=== PATIENT | female | born 1965 | race Caucasian/White ===

== ENCOUNTER 2016-11-15 12:28 | Emergency (ER) | payer MEDICARE, MEDICAID ==
--- NOTE | 2016-11-15 13:53 | ED ---
Skin Complaint - HPI Summary HPI Summary: 51 female presents with complains of needing a head lice check. Patient states she was having itching of her scalp and noticed lice, she has had it in the past. She was treated on Sunday and symptoms have resolved. Denies any symptoms or itching. States she is going to treat herself one more time on Sunday, 7 days from initial treatment. Denies any other complaints. No PMHx. Needs a note saying she is clear for her custodial. - History of Current Complaint Chief Complaint: EDGeneral Time Seen by Provider: 11/15/16 12:57 Stated Complaint: CHECK FOR LICE Hx Obtained From: Patient Onset/Duration: Started Days Ago, Resolved Skin Exposure Onset/Duration: Days Ago Timing: Lasting Days Onset Severity: Mild Current Severity: None Pain Intensity: 0 Pain Scale Used: 0-10 Numeric Skin Location: Discrete - scalp, head Character: Pruritus Aggravating Symptom(s): Nothing Alleviating Symptom(s): Treatment POOL CLEANER: - lice treatment, "dr lice" Associated Signs & Symptoms: Negative Related History: Insect Bite/Sting - lice - Allergy/Home Medications Allergies/Adverse Reactions: Allergies Allergy/AdvReac Type Severity Reaction Status Date / Time Penicillins [PCN] Allergy Unknown Hives Verified 11/15/16 12:55 Ibuprofen Allergy Edema Verified 11/15/16 12:55 PMH/Surg Hx/FS Hx/Imm Hx Endocrine/Hematology History: Reports: Hx Diabetes - BOARDERLINE Denies: Hx Systemic Lupus Erythematosus, Hx Thyroid Disease Cardiovascular History: Reports: Hx Angina - PRESSURE, Hx Hypotension Denies: Hx Congestive Heart Failure, Hx Hypertension, Hx Pacemaker/ICD Respiratory History: Reports: Hx Asthma, Hx Sleep Apnea - evaluation for 05/2013 , Other Respiratory Problems/Disorders - current smoker Denies: Hx Chronic Obstructive Pulmonary Disease (COPD) GI History: Denies: Hx Ulcer History: Reports: Hx Kidney Stones Denies: Hx Dialysis, Hx Renal Disease Musculoskeletal History: Reports: Hx Back Problems - chronic pain, Hx Orthopedic Injury - rib injury, Other Musculoskeletal History - leg edema, candidiasis Denies: Hx Rheumatoid Arthritis Sensory History: Denies: Hx Hearing Aid Psychiatric History: Reports: Hx Community Mental Health Tx - Ashley Benson, provider, Hx Schizophrenia Denies: Hx Panic Disorder - Cancer History Cancer Type, Location and Year: CERVIX, 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 TEENS Hx Chemotherapy: No - Surgical History Surgery Procedure, Year, and Place: CHOLECYSTECTOMY EARLY 2012 @ [facility] [place] & A REMOVEDPALATEDENTALTUBAL LIGATION - Immunization History Immunizations Up to Date: Yes Infectious Disease History: No Infectious Disease History: Denies: Hx Hepatitis, Hx Human Immunodeficiency Virus (HIV), Traveled Outside the [place] in Last 30 Days - Family History Known Family History: Positive: Unknown - Social History Alcohol Use: None Substance Use Type: Reports: Prescribed Smoking Status (MU): Light Every Day Tobacco Smoker Type: Cigarettes Have You Smoked in the Last Year: Yes Review of Systems Constitutional: Negative Cardiovascular: Negative Respiratory: Negative Positive: Other - head lice exposure, treated All Other Systems Reviewed And Are Negative: Yes Physical Exam Triage Information Reviewed: Yes Vital Signs On Initial Exam: Initial Vitals Temp Pulse Resp BP Pulse Ox 96.8 F 88 18 129/76 98 11/15/16 12:34 11/15/16 12:34 11/15/16 12:34 11/15/16 12:34 11/15/16 12:34 Vital Signs Reviewed: Yes Appearance: Positive: Well-Appearing, No Pain Distress, Well-Nourished Skin: Positive: Warm, Skin Color Reflects Adequate Perfusion, Dry. Negative: Cold, Soft, Cyanosis @, Pale, Erythema @ Head/Face: Positive: Normal Head/Face Inspection, Scalp - some remnants and capsules noted however no live pediculosis noted, easily removable. Eyes: Positive: Conjunctiva Clear ENT: Positive: Hearing grossly normal Neck: Positive: Supple Respiratory/Lung Sounds: Positive: Clear to Auscultation, Breath Sounds Present. Negative: Rales, Rhonchi, Wheezes Cardiovascular: Positive: Normal, RRR, Pulses are Symmetrical in both Upper and Lower Extremities. Negative: Murmur, Rub Musculoskeletal: Positive: Strength/ROM Intact Neurological: Positive: Sensory/Motor Intact, Alert, Oriented to Person Place, Time Psychiatric: Positive: Affect/Mood Appropriate Diagnostics - Vital Signs Vital Signs Temp Pulse Resp BP Pulse Ox 11/15/16 12:54 96.8 F 88 18 129/76 98 11/15/16 12:34 96.8 F 88 18 129/76 98 - Laboratory Lab Statement: Any lab studies that have been ordered have been reviewed, and results considered in the medical decision making process. Course/Dx - Course Course Of Treatment: evaluated patient for lice using lamp and comb, nurse Felicia STEVENS also evaluted patient. No sign of live lice noted, however remnanat and capsules that were easily removed were noted. [place] with permethrin on Sunday, 7 days from initial to ensure complete treatment. Continue proper washing, wet combing and try flat ironing hair. Clear to return to custodial as no live lice identified. Follow up, especially if symptoms return. - Differential Diagnoses - Skin Complaint Differential Diagnoses: Tinea, Urticaria, Other - pediculosis capitas - Diagnoses Provider Diagnoses: Pediculosis capitis Discharge - Discharge Plan Condition: Stable Disposition: HOME Prescriptions: Permethrin 1% LOTION* [Nix 1% LOTION*] 1 applic TOPICAL SEE INSTRUCTIONS #1 btl Patient Education Materials: Permethrin (On the skin), Pediculosis (ED) Forms: *Gen. Provider Communication Referrals: Bradley Peace MD [Primary Care Provider] - Additional Instructions: Use prescribed medication on Sunday as directed below. Prior to application, wash hair with conditioner-free shampoo; rinse with water and towel dry. Apply a sufficient amount of lotion or cream rinse to saturate the hair and scalp (especially behind the ears and nape of neck). Leave on hair for no longer than 10 minutes, then rinse off with warm water; remove remaining nits with nit comb. A single application is generally sufficient; however may repeat 7 days after first treatment if lice or nits are still present. Follow up with PCP. Recommend wet combing after treatment and flat ironing hair to kill any remaining remnants.
[2016-11-15 14:32] VITALS: BP 130/72
== END 2016-11-15 14:33 | disposition home or self-care (01) ==
LOC: ED 12:28
DX: B85.0 Pediculosis due to Pediculus humanus capitis (principal); F17.210 Nicotine dependence, cigarettes, uncomplicated
CPT/HCPCS: 99282

== ENCOUNTER → 2019-03-07 | Day surgery (SDC) | payer MEDICARE, MEDICAID ==
[~2019-03-07] MED LIST: Buffered Lidocaine 1% SYRIN* 1 ML/SYRINGE INTRADERM ONE; Lactated Ringers 1000 ML Bag* 1,000 ML IV SCH; Midazolam* 1 MG/ML 5 ML VIAL (5 MG) ONE; Ofloxacin 0.3% (Ear Drop)* 5 ml BTL ONE; fentaNYL* 50 MCG/ML 2 ML VIAL (100 MCG VIAL) ONE
[2019-03-07 14:04] VITALS: BP 93/62
--- NOTE | 2019-03-07 20:32 | OP ---
DATE OF OPERATION: 03/07/19 - [facility] DATE OF : 63 SURGEON: Chip Conn MD CURB BUILDER: None. ANESTHESIA: General. PRE-OP DIAGNOSIS: Chronic serous otitis media on the right. POST-OP DIAGNOSIS: Chronic serous otitis media on the right. OPERATIVE PROCEDURE: Right myringotomy tube placement. ESTIMATED BLOOD LOSS: Negligible. FINDINGS: Serous effusion on the right. INDICATION: This is a 53-year-old woman who has had problems intermittently with middle ear disease. She has had a right-sided effusion for several months now. She could not tolerate placement of a tympanostomy tube in the office and also has a fairly severe head tremor. Because of these factors, the decision was made to place the tympanostomy tube under anesthesia. DESCRIPTION OF PROCEDURE: On 03/07/19, the patient was brought to the operating room. Anesthesia was induced using IV sedatives by the anesthesiologist. The patient was draped and a time-out was performed. The right ear was examined under microscope. Cerumen was cleaned out of the ear canal. An inferior radial myringotomy was made. Serous fluid was suctioned out in the middle ear space and an Berkowitz beveled grommet tube was placed followed by Floxin drops and a cotton ball. The patient was then delivered to the PACU in stable condition. [id number]/[facility] #: [id number] [facility]
== END | disposition home or self-care (01) ==
LOC: OR 09:36
PROVIDERS: ATTEND Otolaryngology
DX: H65.21 Chronic serous otitis media, right ear (principal); G25.2 Other specified forms of tremor; F17.210 Nicotine dependence, cigarettes, uncomplicated; E03.9 Hypothyroidism, unspecified; E11.9 Type 2 diabetes mellitus without complications; Z79.84 Long term (current) use of oral hypoglycemic drugs
CPT/HCPCS: A9270-GY; J2250; J3010

== ENCOUNTER 2021-07-19 11:21 | Inpatient (IN) ==
[~2021-07-19 11:21] MED LIST changes: +Buffered Lidocaine 1% SYRIN 1 ml INTRADERM ONE; -Buffered Lidocaine 1% SYRIN* 1 ML/SYRINGE INTRADERM ONE; -Lactated Ringers 1000 ML Bag* 1,000 ML IV SCH; +Lactated Ringers 1000 ml BAG 1,000 ML IV SCH; -Midazolam* 1 MG/ML 5 ML VIAL (5 MG) ONE; -Ofloxacin 0.3% (Ear Drop)* 5 ml BTL ONE; -fentaNYL* 50 MCG/ML 2 ML VIAL (100 MCG VIAL) ONE
[2021-07-19] MEDS ORDERED: Clindamycin 900 MG/D5W BAG 900 MG/50 ML BAG IVPB ONE (12:32)
[2021-07-19] MEDS ORDERED: Midazolam 2 mg/2 ml VIAL 1 mg/ml 2 ml VIAL (2 mg) ONE (14:52)
[2021-07-19] MEDS ORDERED: Propofol 10 MG/ML 20 ML BTL ONE ×3 (14:52→18:19)
[2021-07-19] MEDS ORDERED: fentaNYL 100 mcg/2 ml 50 MCG/ML VIAL ONE (14:52)
[2021-07-19] MEDS ORDERED: Lidocaine 2% PF 5 ML VIAL ONE (14:52)
[2021-07-19] MEDS ORDERED: Phenylephrine IV 10 MG/ML 1 ml VIAL ONE (14:56)
[2021-07-19] MEDS ORDERED: fentaNYL 100 mcg/2 ml 50 MCG/ML VIAL IV PRN (15:37)
[2021-07-19] MEDS ORDERED: Ondansetron 4 mg VIAL 2 MG/ML 2 ml VIAL IV PRN ×2 (15:37→16:25)
[2021-07-19] MEDS ORDERED: Acetaminophen IV 1 GM/100ML 100 ML IV PRN (15:37)
[2021-07-19] MEDS ORDERED: DiMENhydriNATE IV 50 mg/ml 1 ml VIAL IV PUSH PRN (15:37)
[2021-07-19] MEDS ORDERED: HYDROmorphone 1 MG/1 ML SYRINGE IV PRN (15:37)
[2021-07-19] MEDS ORDERED: Naloxone 0.4 mg VIAL 0.4 mg/ml 1 ml VIAL IV PRN (15:37)
[2021-07-19] MEDS ORDERED: Morphine 2 MG/ML SYRINGE IV PRN (16:25)
[2021-07-19] MEDS ORDERED: diPHENhydraMINE 25 mg TAB PO PRN (16:25)
[2021-07-19] MEDS ORDERED: Ondansetron ODT 4 mg TAB 4 MG TAB PO PRN (16:25)
[2021-07-19] MEDS ORDERED: diPHENhydraMINE IV 50 MG/ML 1 ml VIAL (BENADRYL) IV PRN (16:25)
[2021-07-19] MEDS ORDERED: Lactulose 30 ml UDC PO PRN (16:25)
[2021-07-19] MEDS ORDERED: Magnesium Hydroxide LIQ 30 ML UDC PO PRN (16:25)
[2021-07-19] MEDS ORDERED: Lactated Ringers 1000 ml BAG 1,000 ML IV SCH (17:00)
[2021-07-19] MEDS ORDERED: Dexamethasone IV 4 MG/ML VIAL 1 ml VIAL ONE (17:01)
[2021-07-19] MEDS ORDERED: Ondansetron 4 mg VIAL 2 MG/ML 2 ml VIAL ONE (17:01)
[2021-07-19] MEDS ORDERED: Glycopyrrolate IV 0.2 MG/ML 1 ML VIAL ONE ×2 (17:01→17:02)
[2021-07-19] MEDS ORDERED: Dextrose 50% Syringe 50 ml 25 GM/50 ML SYRINGE IV PUSH PRN (20:01)
[2021-07-19] MEDS ORDERED: Albuterol HFA INHALER 8 gm MDI INH PRN (20:03)
[2021-07-19] MEDS: Magnesium Hydroxide LIQ 30 ML UDC PO SCH (21:29)
[2021-07-20] MEDS: Clindamycin 600 MG/D5W BAG 600 MG/50 ML BAG IV SCH ×3 (00:28→15:41)
[2021-07-20 07:00] LABS: Hematocrit 39 % (35-47); Hemoglobin 12.9 g/dL (12.0-16.0); Mean Platelet Volume 8.5 fL (7.4-10.4); Platelet Count 202 10^3/uL (150-450)
[2021-07-20 07:19] LABS: Calcium 8.3 mg/dL (8.6-10.3); Potassium 3.9 mmol/L (3.5-5.0); eGFR CKD-EPI 94.3 (>60)
[2021-07-20] MEDS ORDERED: Lactated Ringers 500 ml BAG 500 ML IV SCH (09:00)
[2021-07-20] MEDS: Vitamin THERAPEUTIC TAB PO SCH (09:18)
[2021-07-20] MEDS: Magnesium Hydroxide LIQ 30 ML UDC PO SCH ×2 (09:18→20:30)
[2021-07-20] MEDS ORDERED: NS 0.9% 500 ml BAG 500 ML IV ONE (13:24)
[2021-07-20] MEDS ORDERED: NS 0.9% 1000 ml BAG 1,000 ML IV SCH (13:30)
[2021-07-21 06:25] LABS: Hematocrit 34 % (35-47); Hemoglobin 11.4 g/dL (12.0-16.0); Mean Platelet Volume 8.8 fL (7.4-10.4); Platelet Count 172 10^3/uL (150-450)
[2021-07-21] MEDS: Magnesium Hydroxide LIQ 30 ML UDC PO SCH ×2 (08:48→21:23)
[2021-07-21] MEDS: Vitamin THERAPEUTIC TAB PO SCH (08:50)
[2021-07-21] MEDS ORDERED: Lactated Ringers 1000 ml BAG 1,000 ML IV ONE ×2 (10:17)
[2021-07-21] MEDS: Lactated Ringers 1000 ml BAG 1,000 ML IV SCH (15:27)
[2021-07-22] MEDS: Lactated Ringers 1000 ml BAG 1,000 ML IV SCH (01:55)
[2021-07-22 05:55] LABS: Hematocrit 33 % (35-47); Hemoglobin 11.3 g/dL (12.0-16.0); Platelet Count 164 10^3/uL (150-450)
[2021-07-22] MEDS: Magnesium Hydroxide LIQ 30 ML UDC PO SCH (08:42)
[2021-07-22] MEDS: Vitamin THERAPEUTIC TAB PO SCH (08:43)
[2021-07-22] MEDS ORDERED: Cosyntropin 0.25 MG VIAL IV ONE (12:00)
[2021-07-22 12:25] VITALS: BP 102/68
[2021-07-22 13:08] LABS: TSH Ultra Thyroid Stim Horm 15.06 mcIU/mL (0.34-5.60)
[2021-07-25 14:04] LABS: ACTH <5.0 pg/mL
[2021-07-26 16:02] LABS: Renin 1.5 ng/mL/h
== END 2021-07-22 16:42 | disposition home or self-care (01) | DRG 470 ==
LOC: AA 11:21 → SSU 20:05
PROVIDERS: ADMIT Orthopaedic Surgery Adult Reconstructive Orthopaedic Surgery; ATTEND Orthopaedic Surgery Adult Reconstructive Orthopaedic Surgery

== ENCOUNTER 2023-10-19 08:20 | Observation (INO) ==
[~2023-10-19 08:20] MED LIST changes: -Buffered Lidocaine 1% SYRIN 1 ml INTRADERM ONE; +Dexamethasone IV 4 MG/ML VIAL 1 ml VIAL ONE; -Lactated Ringers 1000 ml BAG 1,000 ML IV SCH; +Lidocaine 2% PF 5 ML VIAL ONE; +Metoclopramide 5 MG/ML VIAL (10 mg) IV PRN; +Midazolam 2 mg/2 ml VIAL 1 mg/ml 2 ml VIAL (2 mg) ONE; +NS 0.45% 1000 ml BAG 1,000 ML IV SCH; +Naloxone 0.4 mg VIAL 0.4 mg/ml 1 ml VIAL IV PRN; +Ondansetron 4 mg VIAL 2 MG/ML 2 ml VIAL IV PRN; +Ondansetron 4 mg VIAL 2 MG/ML 2 ml VIAL ONE; +Phenylephrine IV 10 MG/ML 1 ml VIAL ONE; +Propofol 10 MG/ML 20 ML BTL ONE; +ROPIVACAINE 5 MG/ML 30 ML BTL (0.5%) ONE; +Tranexamic Acid 1 GM/100ML BAG 2,000 MG/200 ML BAG IV ONE; +ceFAZolin 2 GM in NS PREMIX 2 GM/100 ML BAG IVPB ONE; +fentaNYL 100 mcg/2 ml 50 MCG/ML VIAL ONE
[2023-10-19 08:31] LABS: Rapid COVID-19 Molecular Undetected (Undetected)
[2023-10-19] MEDS ORDERED: Rocuronium 50 mg VIAL 10 mg/ml 5 ml VIAL (50 mg) ONE ×2 (09:10→10:54)
[2023-10-19] MEDS ORDERED: HYDROmorphone 0.5 MG/0.5 ML SYRINGE ONE (09:10)
[2023-10-19] MEDS ORDERED: fentaNYL 100 mcg/2 ml 50 MCG/ML VIAL ONE ×3 (09:10→13:57)
[2023-10-19] MEDS ORDERED: Sterile Water for Inj 10 ML ONE (10:27)
[2023-10-19] MEDS ORDERED: Propofol 10 MG/ML 20 ML BTL ONE (11:42)
[2023-10-19] MEDS ORDERED: Ondansetron ODT 4 mg TAB 4 MG TAB PO PRN (13:11)
[2023-10-19] MEDS ORDERED: Morphine 2 MG/ML SYRINGE IV PRN (13:11)
[2023-10-19] MEDS ORDERED: Magnesium Hydroxide LIQ 30 ML UDC PO PRN (13:11)
[2023-10-19] MEDS ORDERED: Calcium Carb (TUMS) 500 mg CHEW TAB PO PRN (13:11)
[2023-10-19] MEDS ORDERED: Lactulose 30 ml UDC PO PRN (13:11)
[2023-10-19] MEDS ORDERED: Albuterol HFA INHALER 8 gm MDI INH PRN (13:43)
[2023-10-19] MEDS: fentaNYL 100 mcg/2 ml 50 MCG/ML VIAL IV PRN (13:58)
[2023-10-19] MEDS ORDERED: Dextrose 50% Syringe 50 ml 25 GM/50 ML SYRINGE IV PUSH PRN (14:12)
[2023-10-19] MEDS: Acetaminophen IV 1 GM/100ML 1,000 MG/100 ML BAG IV ONE (15:47)
[2023-10-19] MEDS: Buffered Lidocaine 1% SYRIN 1 ml INTRADERM ONE (15:48)
[2023-10-19] MEDS: Scopolamine 1 mg/72hr PATCH TRANSDERM ONE (15:49)
[2023-10-19] MEDS: Lactated Ringers 1000 ml BAG 1,000 ML IV SCH ×2 (15:50→16:11)
[2023-10-19] MEDS: ceFAZolin 2 GM in NS PREMIX 2 GM/100 ML BAG IVPB SCH (17:58)
[2023-10-19] MEDS: Magnesium Hydroxide LIQ 30 ML UDC PO SCH (21:24)
[2023-10-20] MEDS: Ondansetron 4 mg VIAL 2 MG/ML 2 ml VIAL IV PRN (05:55)
[2023-10-20 06:05] LABS: Hemoglobin 11.8 g/dL (11.5-14.3); Mean Platelet Volume 8.2 fL (7.5-11.2); Platelet Count 213 10^3/uL (150-450)
[2023-10-20 06:50] LABS: Creatinine, Serum 0.85 mg/dL (0.51-0.95); Potassium 4.6 mmol/L (3.5-5.0); eGFR CKD-EPI 78.9 (>60)
[2023-10-20] MEDS: Vitamin THERAPEUTIC TAB PO SCH (09:46)
[2023-10-20] MEDS: CMC: SitaGLIPtin 100 mg TAB (NF) PO SCH (09:46)
[2023-10-20 13:40] VITALS: BP 84/52
== END 2023-10-20 15:00 | disposition home or self-care (01) ==
LOC: OR 08:20 → SSU 08:20
PROVIDERS: ADMIT Orthopaedic Surgery Adult Reconstructive Orthopaedic Surgery; ATTEND Orthopaedic Surgery Adult Reconstructive Orthopaedic Surgery